=== PATIENT | male | born 2000 | race Caucasian/White ===

== ENCOUNTER 2023-08-17 11:26 | Emergency (ER) | payer BC ==
[2023-08-17] MEDS ORDERED: Lidocaine 1% 5 ML VIAL INJECT ONE (12:26)
[2023-08-17] MEDS ORDERED: Bacitracin Oint 1 GM U/D Packet TOP ONE (12:26)
== END 2023-08-17 12:48 | disposition home or self-care (01) ==
LOC: LB.ED 11:26
DX: S81.011A Laceration without foreign body, right knee, initial encounter (principal); W00.0XXA Fall on same level due to ice and snow, initial encounter
CPT/HCPCS: 12001; 99282